=== PATIENT | male | born 1975 | race Caucasian/White ===

== ENCOUNTER 2021-07-07 18:44 | Emergency (ER) | payer SELFPAY ==
[2021-07-07] MEDS ORDERED: Bupivacaine 0.25% 10 ML VIAL ONE (19:55)
== END 2021-07-07 20:39 | disposition home or self-care (01) ==
LOC: ERS 18:44
DX: K08.89 Other specified disorders of teeth and supporting structures (principal); F17.210 Nicotine dependence, cigarettes, uncomplicated
CPT/HCPCS: 64400; S0020

== ENCOUNTER 2023-08-24 02:53 | Emergency (ER) | payer SELFPAY ==
[2023-08-24] MEDS ORDERED: Ketorolac Tromethamine 30 MG (1 mL) VIAL ONE (04:45)
[2023-08-24] MEDS ORDERED: Orphenadrine Citrate 60 MG/2 ML VIAL ONE (04:45)
== END 2023-08-24 06:45 | disposition home or self-care (01) ==
LOC: ERS 02:53
DX: M54.42 Lumbago with sciatica, left side (principal); M53.3 Sacrococcygeal disorders, not elsewhere classified; F17.210 Nicotine dependence, cigarettes, uncomplicated
CPT/HCPCS: 72100; 96372; J1885; J2360

== ENCOUNTER 2023-11-23 19:53 | Inpatient (IN) | payer SELFPAY ==
[2023-11-23 20:31] LABS: #Basophils 0.04 10x3/uL (0.0-0.2); %Basophils 0.3 % (0.0-1.0); %Eosinophils 0.7 % (0.0-10.0); %Lymphocytes 18.3 % (21.0-51.0); %Neutrophils 73.2 % (42.0-75.0); Hematocrit 46.3 % (42.0-52.0); Hemoglobin 15.5 g/dL (14.0-18.0); Mean Corpuscular HGB CONC 33.5 g/dL (32.0-36.0); Mean Corpuscular Hemoglobin 31.1 pg (27.0-31.0); Mean Platelet Volume 9.6 fL (7.4-10.4); Platelet Count 306 10x3/uL (130-400); RBC Distribution Width 12.8 % (11.5-14.5); Red Blood Cell (RBC) Count 4.98 mill/uL (4.70-6.10)
[2023-11-23 20:46] LABS: ALT (SGPT) 22 U/L (8-55); AST (SGOT) 19 U/L (5-34); Albumin 4.2 g/dL (3.5-5.0); Alkaline Phosphatase 50 U/L (40-110); Anion Gap 12 mmol/L (10-20); BUN (Urea Nitrogen) 18 mg/dL (8.9-20.6); Bilirubin, Total 0.2 mg/dL (0.2-1.2); Calc. Creatinine Clearance 0 mL/min (70-130); Calcium 9.4 mg/dL (7.8-10.44); Carbon Dioxide 22 mmol/L (22-29); Chloride 105 mmol/L (98-107); Estimated GFR 79; Globulin 3.8 g/dL (2.4-3.5); Glucose 132 mg/dL (70-105); Lipase 21 U/L (8-78); Magnesium 2.1 mg/dL (1.6-2.6); Potassium 4.2 mmol/L (3.5-5.1); Sodium 135 mmol/L (136-145)
[2023-11-23 20:51] LABS: Troponin I 0.077 ng/mL (< 0.028)
[2023-11-23] MEDS ORDERED: Nitroglycerin 0.4 MG TAB 1 EACH ONE (21:21)
[2023-11-23] MEDS ORDERED: Aspirin Chewable 81 MG TAB ONE (21:21)
[2023-11-23] MEDS ORDERED: Morphine 2 MG/ML VIAL ONE (22:16)
[2023-11-23] MEDS ORDERED: Nitroglycerin 2% Ointment 1 INCH/1 GM Packet ONE (22:16)
[2023-11-23] MEDS ORDERED: Nitroglycerin 0.4 MG TAB (25 Tab Bottle) SL PRN (23:01)
[2023-11-23] MEDS ORDERED: Morphine 4 MG/ML VIAL ONE (23:14)
[2023-11-23] MEDS ORDERED: Enoxaparin 100 MG (1 mL) SYRINGE ONE (23:14)
[2023-11-24] MEDS ORDERED: Ondansetron PF 4 MG/2 ML Vial IVP PRN (00:08)
[2023-11-24 04:07] LABS: #Basophils 0.05 10x3/uL (0.0-0.2); %Basophils 0.5 % (0.0-1.0); %Eosinophils 1.8 % (0.0-10.0); %Lymphocytes 35.4 % (21.0-51.0); %Monocytes 13.8 % (0.0-10.0); Hematocrit 42.9 % (42.0-52.0); Hemoglobin 13.8 g/dL (14.0-18.0); Mean Corpuscular HGB CONC 32.2 g/dL (32.0-36.0); Mean Corpuscular Hemoglobin 30.5 pg (27.0-31.0); Mean Corpuscular Volume 94.7 fL (78.0-98.0); Mean Platelet Volume 9.9 fL (7.4-10.4); Platelet Count 280 10x3/uL (130-400); RBC Distribution Width 12.9 % (11.5-14.5); Red Blood Cell (RBC) Count 4.53 mill/uL (4.70-6.10)
[2023-11-24 04:29] LABS: Troponin I 1.971 ng/mL (< 0.028)
[2023-11-24 04:51] LABS: Anion Gap 13 mmol/L (10-20); BUN (Urea Nitrogen) 16 mg/dL (8.9-20.6); Calc. Creatinine Clearance 135 mL/min (70-130); Calcium 8.7 mg/dL (7.8-10.44); Carbon Dioxide 22 mmol/L (22-29); Cardiac Risk 4.9 (Less than 4.5); Chloride 106 mmol/L (98-107); Cholesterol 158 mg/dl (< 200 Desired); Estimated GFR 103; Glucose 105 mg/dL (70-105); HDL Cholesterol 32 mg/dL (>60 Neg Risk); LDL Cholesterol, Calculated 95 mg/dL; Potassium 3.4 mmol/L (3.5-5.1); Sodium 138 mmol/L (136-145); Triglycerides 154 mg/dL (Less than 150)
[2023-11-24] MEDS ORDERED: Enoxaparin 80 MG (0.8 mL) SYRINGE SC SCH (09:00)
[2023-11-24] MEDS: Aspirin Chewable 81 MG TAB PO SCH (09:49)
[2023-11-24] MEDS: Metoprolol Tartrate 25 MG TAB PO SCH ×2 (09:49→21:10)
[2023-11-24] MEDS: Enoxaparin 100 MG (1 mL) SYRINGE SC SCH (09:50)
[2023-11-24] MEDS: FLU (Fluarix Triv) TS24-25(6MOS UP)/PF 45 MCG/0.5 ML Syringe IM ONE (09:51)
[2023-11-24] MEDS: Acetaminophen 325 MG TAB PO PRN (10:03)
[2023-11-24] MEDS: Atorvastatin Calcium 40 MG TAB PO SCH ×2 (12:43→21:09)
[2023-11-24] MEDS: Potassium Chloride 20 MEQ TAB PO SCH (13:55)
[2023-11-25 07:04] LABS: Anion Gap 10 mmol/L (10-20); BUN (Urea Nitrogen) 13 mg/dL (8.9-20.6); Calc. Creatinine Clearance 146 mL/min (70-130); Calcium 9.2 mg/dL (7.8-10.44); Carbon Dioxide 21 mmol/L (22-29); Chloride 108 mmol/L (98-107); Estimated GFR 108; Glucose 100 mg/dL (70-105); Sodium 135 mmol/L (136-145)
[2023-11-25] MEDS: Potassium Chloride 20 MEQ TAB PO SCH (11:07)
[2023-11-25] MEDS ORDERED: Communication Order-Pharmacy FS SCH (12:00)
[2023-11-26] MEDS ORDERED: Nitroglycerin 50 MG/250 ML BOT 250 ML ONE (06:48)
[2023-11-26] MEDS ORDERED: Heparin 10,000 UNITS/ 10 ML VIAL ONE (06:48)
[2023-11-26] MEDS ORDERED: fentaNYL 50 mcg/mL 1 mL Vial ONE ×5 (06:48→11:39)
[2023-11-26] MEDS ORDERED: Atropine Sulfate 1 mg/10 ml Syringe ONE (06:48)
[2023-11-26] MEDS ORDERED: Midazolam HCl 2 mg/2 ml Vial ONE ×3 (06:48→09:13)
[2023-11-26] MEDS ORDERED: Verapamil 5 MG/2 ML VIAL ONE (07:39)
[2023-11-26] MEDS ORDERED: Adenosine 6 mg (2 mL) VIAL ONE (07:39)
[2023-11-26] MEDS ORDERED: TICAGRELOR 90 MG TABLET ONE (08:45)
[2023-11-26] MEDS ORDERED: Morphine 4 MG/ML VIAL ONE (09:05)
[2023-11-26] MEDS ORDERED: Clopidogrel Bisulfate 300 MG TAB ONE (09:31)
[2023-11-26] MEDS ORDERED: Iopamidol 370 76% 100 ML VIAL ONE (10:06)
[2023-11-26 12:36] VITALS: BMI 28.5
[2023-11-26] MEDS: Morphine 2 MG/ML VIAL SLOW IVP PRN (12:50)
[2023-11-27 01:43] LABS: #Basophils 0.06 10x3/uL (0.0-0.2); %Basophils 0.6 % (0.0-1.0); %Eosinophils 2.5 % (0.0-10.0); %Lymphocytes 20.4 % (21.0-51.0); Hemoglobin 15.2 g/dL (14.0-18.0); Mean Corpuscular HGB CONC 33.8 g/dL (32.0-36.0); Mean Corpuscular Hemoglobin 30.6 pg (27.0-31.0); Mean Corpuscular Volume 90.7 fL (78.0-98.0); Platelet Count 308 10x3/uL (130-400); RBC Distribution Width 12.6 % (11.5-14.5); Red Blood Cell (RBC) Count 4.96 mill/uL (4.70-6.10)
[2023-11-27 07:30] LABS: Anion Gap 12 mmol/L (10-20); BUN (Urea Nitrogen) 14 mg/dL (8.9-20.6); Calc. Creatinine Clearance 143 mL/min (70-130); Calcium 9.1 mg/dL (7.8-10.44); Carbon Dioxide 24 mmol/L (22-29); Chloride 106 mmol/L (98-107); Estimated GFR 108; Glucose 98 mg/dL (70-105); Magnesium 2.1 mg/dL (1.6-2.6); Potassium 4.1 mmol/L (3.5-5.1); Sodium 138 mmol/L (136-145)
[2023-11-27] MEDS: Clopidogrel Bisulfate 75 MG TAB PO SCH (08:36)
[2023-11-27] MEDS: Metoprolol Tartrate 25 MG TAB PO SCH (08:36)
[2023-11-27 09:24] VITALS: TEMP 98.4
[2023-11-27 12:55] VITALS: BP 113/80
== END 2023-11-27 11:57 | disposition home or self-care (01) | DRG 322 ==
LOC: ERS 19:53 → 2SW 23:03 → CCU 11-26 10:22
PROVIDERS: ADMIT Internal Medicine; ATTEND Family Medicine
PROC: 027135Z Dilation of Coronary Artery, Two Arteries with Two Drug-eluting Intraluminal Devices, Percutaneous Approach (ICD-10-PCS; principal; 2023-11-26)
PROC: 02C03ZZ Extirpation of Matter from Coronary Artery, One Artery, Percutaneous Approach (ICD-10-PCS; 2023-11-26)
PROC: 4A023N7 Measurement of Cardiac Sampling and Pressure, Left Heart, Percutaneous Approach (ICD-10-PCS; 2023-11-26)
PROC: B2111ZZ Fluoroscopy of Multiple Coronary Arteries using Low Osmolar Contrast (ICD-10-PCS; 2023-11-26)
DX: I21.4 Non-ST elevation (NSTEMI) myocardial infarction (principal); I25.10 Atherosclerotic heart disease of native coronary artery without angina pectoris; I10 Essential (primary) hypertension; E78.5 Hyperlipidemia, unspecified; E87.6 Hypokalemia; F17.210 Nicotine dependence, cigarettes, uncomplicated; D72.829 Elevated white blood cell count, unspecified; Z71.6 Tobacco abuse counseling; Z90.49 Acquired absence of other specified parts of digestive tract
CPT/HCPCS: 36415; 71045; 80048; 80053; 80061; 83690; 83735; 83880; 84443; 84484; 85025; 85347; 85379; 92928; 92929; 92973; 92978; 92979; 93005; 93010; 93306; 93458; 93798; 94760; 96372; 96374; 96376; 99152; 99153; C1725; C1753; C1769; C1874; C1887; C9600; C9601; J0153; J0461; J1644; J1650; J2250; J2272; J3010